=== PATIENT | male | born 1985 | race Hispanic/Latino ===

== ENCOUNTER 2018-11-27 08:56 | Inpatient (IN) | payer SELFPAY ==
[2018-11-27] MEDS ORDERED: NACL 0.9% 500 ML 500 ML IV ONE (09:02)
[2018-11-27] MEDS ORDERED: TYLENOL PO STA (09:02)
[2018-11-27 09:26] LABS: Basophils % (Auto) 0.7 % (0.0-1.8); Eosinophils % (Auto) 0.1 % (0.0-4.3); Hematocrit 44.3 % (35.5-45.6); Hemoglobin 15.4 gm/dl (11.8-15.2); Lymphocytes % (Auto) 17.2 % (13.4-35.0); Mean Corpuscular HGB Conc 35 % (32-34); Mean Corpuscular Volume 89 fl (84-94); Monocytes # (Auto) 0.6 K/mm3 (0.0-0.8); Monocytes % (Auto) 9.9 % (0.0-7.3); Platelet Count 142 K/mm3 (140-440); Red Blood Count 4.95 M/mm3 (3.65-5.03); Red Cell Distribution Width 13.6 % (13.2-15.2)
[2018-11-27] MEDS ORDERED: NACL 0.9% 1000 ML 1,000 ML IV ONE ×3 (09:27→13:47)
[2018-11-27] MEDS ORDERED: LEVAQUIN 750MG/150ML 750 MG/150 ML BAG IV ONE (09:28)
--- NOTE | 2018-11-27 09:33 | Emergency Department Report ---
ED General Adult HPI - General Chief complaint: Chest Pain Stated complaint: CHEST PAIN Time Seen by Provider: 11/27/18 09:17 Source: patient Mode of arrival: Ambulatory Limitations: No Limitations - History of Present Illness Initial comments: 33-year-old male with cough fever chills nausea and some chest discomfort. Chest discomfort is largely related to cough. However there is some pain on inspiration. Patient states that he had a "walking pneumonia in the past". He takes no chronic medication. He's had no pneumonia vaccines. -: Gradual, days(s) Location: chest Radiation: non-radiation Quality: other (some tightness) Consistency: intermittent (mostly with cough) Improves with: none Worsens with: none Associated Symptoms: denies other symptoms Treatments Prior to Arrival: none - Related Data Previous Rx's Medication Instructions Recorded Last Taken Type HYDROcodone/APAP 5-325 [[place] 1 each PO Q6HR PRN #18 tablet 06/10/18 Unknown Rx 5/325] Allergies Allergy/AdvReac Type Severity Reaction Status Date / Time No Known Allergies Allergy Verified 06/10/18 11:16 ED Review of Systems ROS: Stated complaint: CHEST PAIN Other details as noted in HPI Constitutional: chills, fever Eyes: denies: eye pain, eye discharge, vision change ENT: denies: ear pain, throat pain Respiratory: cough, shortness of breath. denies: wheezing Cardiovascular: chest pain. denies: palpitations Endocrine: no symptoms reported Gastrointestinal: denies: abdominal pain, nausea, diarrhea Genitourinary: denies: urgency, dysuria Musculoskeletal: other (denies leg pain or swelling). denies: back pain, joint swelling, arthralgia Skin: denies: rash, lesions Neurological: denies: headache, weakness, paresthesias Psychiatric: denies: anxiety, depression Hematological/Lymphatic: denies: easy bleeding, easy bruising ED Past Medical Hx - Past Medical History Additional medical history: "Walking pneumonia" - Surgical History Past Surgical History?: No - Social History Smoking Status: Current Every Day Smoker Substance Use Type: Alcohol - Medications Home Medications: Home Medications Medication Instructions Recorded Confirmed Last Taken Type HYDROcodone/APAP 5-325 [[place] 1 each PO Q6HR PRN #18 tablet 06/10/18 Unknown Rx 5/325] ED Physical Exam - General Limitations: No Limitations General appearance: alert, in no apparent distress - Head Head exam: Present: atraumatic, normocephalic - Eye Eye exam: Present: normal appearance. Absent: scleral icterus - ENT ENT exam: Present: mucous membranes dry (a bit) - Neck Neck exam: Present: normal inspection. Absent: tenderness, meningismus - Respiratory Respiratory exam: Present: normal lung sounds bilaterally. Absent: respiratory distress - Cardiovascular Cardiovascular Exam: Present: normal rhythm, tachycardia. Absent: systolic murmur, diastolic murmur, rubs, gallop - GI/Abdominal GI/Abdominal exam: Present: soft, normal bowel sounds. Absent: distended, tenderness, guarding, rebound, rigid - Rectal Rectal exam: Present: deferred - Extremities Exam Extremities exam: Present: normal inspection, full ROM, normal capillary refill. Absent: tenderness, pedal edema, joint swelling, calf tenderness - Back Exam Back exam: Present: normal inspection - Neurological Exam Neurological exam: Present: alert, oriented X3, CN II-XII intact. Absent: motor sensory deficit - Psychiatric Psychiatric exam: Present: normal affect, normal mood - Skin Skin exam: Present: warm, dry, intact, normal color. Absent: rash ED Course Vital Signs 11/27/18 11/27/18 11/27/18 09:00 09:48 10:00 Temperature 102.8 F H Pulse Rate 141 H 118 H 122 H Respiratory 20 24 18 Rate Blood Pressure 117/76 116/76 O2 Sat by Pulse 100 96 95 Oximetry 11/27/18 11/27/18 11/27/18 10:16 10:30 10:46 Temperature Pulse Rate 123 H 114 H 115 H Respiratory 18 28 H 20 Rate Blood Pressure 116/76 110/69 116/76 O2 Sat by Pulse 94 94 94 Oximetry 11/27/18 11/27/18 11/27/18 11:00 11:24 11:30 Temperature Pulse Rate 117 H 119 H 115 H Respiratory 18 31 H 24 Rate Blood Pressure 115/79 O2 Sat by Pulse 95 94 96 Oximetry 11/27/18 11/27/18 11/27/18 11:46 12:00 12:08 Temperature 99.7 F H Pulse Rate 106 H 99 H Respiratory 19 15 Rate Blood Pressure O2 Sat by Pulse 95 96 Oximetry 11/27/18 11/27/18 11/27/18 12:16 12:30 12:46 Temperature Pulse Rate 102 H 111 H 107 H Respiratory 18 15 21 Rate Blood Pressure O2 Sat by Pulse 95 95 96 Oximetry 11/27/18 11/27/18 11/27/18 13:00 13:16 13:30 Temperature Pulse Rate 102 H 95 H Respiratory 23 16 Rate Blood Pressure 123/78 123/78 O2 Sat by Pulse 95 94 97 Oximetry 11/27/18 11/27/18 11/27/18 13:46 14:00 14:16 Temperature Pulse Rate 88 Respiratory 18 Rate Blood Pressure 123/78 123/78 123/78 O2 Sat by Pulse 95 97 97 Oximetry 11/27/18 11/27/18 11/27/18 14:30 14:46 15:00 Temperature Pulse Rate 95 H 92 H 113 H Respiratory 14 17 15 Rate Blood Pressure 123/78 98/68 98/68 O2 Sat by Pulse 94 93 90 Oximetry 11/27/18 11/27/18 11/27/18 15:16 15:30 15:46 Temperature Pulse Rate 88 90 106 H Respiratory 14 18 26 H Rate Blood Pressure 123/91 123/91 123/91 O2 Sat by Pulse 96 95 96 Oximetry - Reevaluation(s) Reevaluation #1: Patient's workup has been relatively benign except for a low sodium. He was certainly volume depleted. He had a persistent resting tachycardia but now his heart rate is in the 90s. However, I had him stand up and is heart rate is 120 standing. I asked the patient and recommended admission for further care fluids and observation. He does have a SIRS syndrome. I think it's probably viral. I explained him the benefit of admission. He is mentally competent and declines. I ordered another fluid of IV fluid. CT of his chest showed no abnormality. 11/27/18 14:26 Reevaluation #2: Patient with persistent resting tachycardia. Rises to the 120s when standing. The patient will be admitted for SIRS and respiratory infection. Discussed with Dr. Fragoso. 11/27/18 15:53 ED Medical Decision Making - Lab Data Result diagrams: 11/27/18 09:15 11/27/18 09:15 Laboratory Results - last 24 hr 11/27/18 11/27/18 09:15 09:15 WBC 5.9 RBC 4.95 Hgb 15.4 H Hct 44.3 MCV 89 MCH 31 MCHC 35 H RDW 13.6 Plt Count 142 Lymph % (Auto) 17.2 [place] % (Auto) 9.9 H Eos % (Auto) 0.1 Baso % (Auto) 0.7 Lymph # 1.0 L [place] # 0.6 Eos # 0.0 Baso # 0.0 Seg Neutrophils % 72.1 H Seg Neutrophils # 4.3 VBG pH 7.413 - EKG Data -: EKG Interpreted by Me EKG shows normal: sinus rhythm, axis, intervals, QRS complexes, ST-T waves Rate: tachycardia - EKG Data Interpretation: no acute changes - Radiology Data Radiology results: report reviewed interpreted by me: Chest x-ray no acute process There is no aortic dissection seen. There are no abnormal pulmonary arterial filling defects seen to indicate acute pulmonary emboli. There is no abnormal mediastinal or hilar mass seen. There is no pleural effusion seen. The lungs are clear. There is no pneumothorax seen. Critical care attestation.: If time is entered above; I have spent that time in minutes in the direct care of this critically ill patient, excluding procedure time. ED Disposition Clinical Impression: SIRS (systemic inflammatory response syndrome), Respiratory infection Disposition: DC-09 OP ADMIT IP TO THIS HOSP Is pt being admited?: Yes Does the pt Need Aspirin: Yes Condition: Stable Referrals: PRIMARY CARE, [Primary Care Provider] - 3-5 Days Time of Disposition: 15:54
[2018-11-27 09:59] LABS: INR 1.07 (0.87-1.13)
--- NOTE | 2018-11-27 10:35 | XRay Report ---
PROCEDURE: XR CHEST 1V AP TECHNIQUE: Chest radiograph single view. HISTORY: possible Sepsis COMPARISONS: None . FINDINGS: Heart: Normal. Mediastinum/Vessels: Normal. Lungs/Pleural space: Normal. Bony thorax: No acute osseous abnormality. Life support devices: None. IMPRESSION: No acute cardiopulmonary abnormality. This document is electronically signed by Kassandra Wynn MD., Nov 27 2018 10:33:42 AM ET
[2018-11-27 10:45] LABS: Alanine Aminotransferase 24 units/L (7-56); Albumin 4.1 g/dL (3.9-5); BUN/Creatinine Ratio 7; Blood Urea Nitrogen 8 mg/dL (9-20); Calcium 8.4 mg/dL (8.4-10.2); Hemolysis Index 4
[2018-11-27 11:07] LABS: Bilirubin,Urine NEG (Negative); Blood,Urine SM (Negative); Color,Urine Amber (Yellow); Mucus,Urine 2+ /HPF
--- NOTE | 2018-11-27 12:16 | Cat Scan Report ---
PROCEDURE: CT ANGIO CHEST TECHNIQUE: CT angiography of the chest was performed. IV contrast was administered. Axial images and coronal and sagittal reformatted images were obtained. Fan MIP reformatted images were also obtained. HISTORY: cough, tachycardia, fever, chest pain COMPARISON: None FINDINGS: There is no aortic dissection seen. There are no abnormal pulmonary arterial filling defects seen to indicate acute pulmonary emboli. There is no abnormal mediastinal or hilar mass seen. There is no pleural effusion seen. The lungs are clear. There is no pneumothorax seen. IMPRESSION: There is no aortic dissection or pulmonary embolism seen. This document is electronically signed by Radha Cabezas MD., Nov 27 2018 12:14:24 PM ET
[2018-11-27 16:44] LABS: Free T4 (Free Thyroxine) 0.92 ng/dL (0.76-1.46)
[2018-11-27] MEDS ORDERED: PERCOCET 5/325 PO PRN (21:29)
[2018-11-27] MEDS ORDERED: DILAUDID IV PRN (21:29)
[2018-11-27] MEDS ORDERED: SODIUM CHLORIDE FLUSH SYRINGE 10 ML IV PRN (21:29)
--- NOTE | 2018-11-27 21:32 | History and Physical Report ---
History of Present Illness Date of examination: 11/27/18 Date of admission: 11/27/18 15:54 Chief complaint: Chest pain 1 day Cough 4 days History of present illness: 33-year-old male with cough fever chills nausea and some chest discomfort. Chest discomfort is largely related to cough. However there is some pain on inspiration. Patient states that he had a "walking pneumonia in the past". He takes no chronic medication. He's had no pneumonia vaccines. Past Medical History Additional medical history: "Walking pneumonia" Surgical History Past Surgical History?: No Social History Smoking Status: Current Every Day Smoker Substance Use Type: Alcohol Family history Non contributory Medications Home Medications: Home Medications Medication Instructions Recorded Confirmed Last Taken Type HYDROcodone/APAP 5-325 [[place] 1 each PO Q6HR PRN #18 tablet 06/10/18 Unknown Rx 5/325] Review of Systems ROS: Stated complaint: CHEST PAIN Other details as noted in HPI Constitutional: chills, fever Eyes: denies: eye pain, eye discharge, vision change ENT: denies: ear pain, throat pain Respiratory: cough, shortness of breath. denies: wheezing Cardiovascular: chest pain. denies: palpitations Endocrine: no symptoms reported Gastrointestinal: denies: abdominal pain, nausea, diarrhea Genitourinary: denies: urgency, dysuria Musculoskeletal: other (denies leg pain or swelling). denies: back pain, joint swelling, arthralgia Skin: denies: rash, lesions Neurological: denies: headache, weakness, paresthesias Psychiatric: denies: anxiety, depression Hematological/Lymphatic: denies: easy bleeding, easy bruising Medications and Allergies Allergies Allergy/AdvReac Type Severity Reaction Status Date / Time No Known Allergies Allergy Verified 06/10/18 11:16 Home Medications Medication Instructions Recorded Confirmed Last Taken Type HYDROcodone/APAP 5-325 [[place] 1 each PO Q6HR PRN #18 tablet 06/10/18 Unknown Rx 5/325] Exam - Constitutional Vitals: Temp Pulse Resp BP Pulse Ox 98.0 F 99 H 16 112/71 96 11/27/18 17:16 11/27/18 17:16 11/27/18 17:16 11/27/18 17:16 11/27/18 17:16 General appearance: Present: no acute distress, well-nourished - EENT Eyes: Present: PERRL ENT: hearing intact, clear oral mucosa - Neck Neck: Present: supple, normal ROM - Respiratory Respiratory effort: normal Respiratory: bilateral: CTA - Cardiovascular Heart rate: 78 Rhythm: regular Heart Sounds: Present: S1 & S2. Absent: rub, click - Extremities Extremities: no ischemia, pulses intact, pulses symmetrical, No edema Peripheral Pulses: within normal limits - Abdominal General gastrointestinal: Present: soft, non-tender, non-distended, normal bowel sounds Male genitourinary: Present: normal - Rectal Rectal Exam: deferred - Integumentary Integumentary: Present: clear, warm, dry - Musculoskeletal Musculoskeletal: gait normal, strength equal bilaterally - Psychiatric Psychiatric: appropriate mood/affect, intact judgment & insight - Neurologic Neurologic: CNII-XII intact, moves all extremities - Allied Health Allied health notes reviewed: nursing, case management Results - Labs CBC & Chem 7: 11/27/18 09:15 11/27/18 09:15 Labs: Laboratory Last Values WBC 5.9 K/mm3 (4.5-11.0) 11/27/18 09:15 RBC 4.95 M/mm3 (3.65-5.03) 11/27/18 09:15 Hgb 15.4 gm/dl (11.8-15.2) H 11/27/18 09:15 Hct 44.3 % (35.5-45.6) 11/27/18 09:15 MCV 89 fl (84-94) 11/27/18 09:15 MCH 31 pg (28-32) 11/27/18 09:15 MCHC 35 % (32-34) H 11/27/18 09:15 RDW 13.6 % (13.2-15.2) 11/27/18 09:15 Plt Count 142 K/mm3 (140-440) 11/27/18 09:15 Lymph % (Auto) 17.2 % (13.4-35.0) 11/27/18 09:15 [place] % (Auto) 9.9 % (0.0-7.3) H 11/27/18 09:15 Eos % (Auto) 0.1 % (0.0-4.3) 11/27/18 09:15 Baso % (Auto) 0.7 % (0.0-1.8) 11/27/18 09:15 Lymph # 1.0 K/mm3 (1.2-5.4) L 11/27/18 09:15 [place] # 0.6 K/mm3 (0.0-0.8) 11/27/18 09:15 Eos # 0.0 K/mm3 (0.0-0.4) 11/27/18 09:15 Baso # 0.0 K/mm3 (0.0-0.1) 11/27/18 09:15 Seg Neutrophils % 72.1 % (40.0-70.0) H 11/27/18 09:15 Seg Neutrophils # 4.3 K/mm3 (1.8-7.7) 11/27/18 09:15 PT 14.6 Sec. (12.2-14.9) 11/27/18 09:15 INR 1.07 (0.87-1.13) 11/27/18 09:15 VBG pH 7.413 (7.320-7.420) 11/27/18 09:15 Sodium 130 mmol/L (137-145) L 11/27/18 09:15 Potassium 3.5 mmol/L (3.6-5.0) L 11/27/18 09:15 Chloride 93.3 mmol/L (98-107) L 11/27/18 09:15 Carbon Dioxide 22 mmol/L (22-30) 11/27/18 09:15 18 mmol/L 11/27/18 09:15 BUN 8 mg/dL (9-20) L 11/27/18 09:15 1.1 mg/dL (0.8-1.5) 11/27/18 09:15 Estimated GFR > 60 ml/min 11/27/18 09:15 7 % 11/27/18 09:15 Glucose 142 mg/dL (75-100) H 11/27/18 09:15 Lactic Acid 0.40 mmol/L (0.7-2.0) L 11/27/18 12:09 Calcium 8.4 mg/dL (8.4-10.2) 11/27/18 09:15 0.50 mg/dL (0.1-1.2) 11/27/18 09:15 AST 20 units/L (5-40) 11/27/18 09:15 ALT 24 units/L (7-56) 11/27/18 09:15 46 units/L (35-129) 11/27/18 09:15 7.3 g/dL (6.3-8.2) 11/27/18 09:15 4.1 g/dL (3.9-5) 11/27/18 09:15 1.3 % 11/27/18 09:15 TSH 0.510 mlU/mL (0.270-4.200) 11/27/18 16:00 Free T4 0.92 ng/dL (0.76-1.46) 11/27/18 16:00 [place] (Yellow) 11/27/18 10:40 Slightly-cloudy (Clear) 11/27/18 10:40 5.0 (5.0-7.0) 11/27/18 10:40 Ur Specific [place] 1.029 (1.003-1.030) 11/27/18 10:40 30 mg/dl mg/dL (Negative) 11/27/18 10:40 Neg mg/dL (Negative) 11/27/18 10:40 Tr mg/dL (Negative) 11/27/18 10:40 Sm (Negative) 11/27/18 10:40 Neg (Negative) 11/27/18 10:40 Neg (Negative) 11/27/18 10:40 4.0 mg/dL (<2.0) 11/27/18 10:40 Ur Leukocyte Esterase Neg (Negative) 11/27/18 10:40 4.0 /HPF (0.0-6.0) 11/27/18 10:40 6.0 /HPF (0.0-6.0) 11/27/18 10:40 2+ /HPF 11/27/18 10:40 - Imaging and Cardiology EKG: report reviewed (Sinus tachycardia 118 /min) Chest x-ray: report reviewed (NAF) CT scan - chest: report reviewed (NAF ) Assessment and Plan Advance Directives: Yes (Full code) VTE prophylaxis?: Chemical Plan of care discussed with patient/family: Yes - Patient Problems (1) SIRS (systemic inflammatory response syndrome) Current Visit: Yes Status: Acute Plan to address problem: Temp of 102.8 and Tachycardia in favor of SIRS (2) Acute bronchitis Current Visit: Yes Status: Acute Qualifiers: Bronchitis organism: unspecified organism Qualified Code(s): J20.9 - Acute bronchitis, unspecified Plan to address problem: IV abx and Duonebs (3) Chest pain Current Visit: Yes Status: Acute Qualifiers: Chest pain type: unspecified Qualified Code(s): R07.9 - Chest pain, unspecified Plan to address problem: Chest pain r/o mi protocol Exercise stress test in am Serial troponins Possible CP sec to coughing---musculoskeliltal (4) Hyponatremia Current Visit: Yes Status: Acute Plan to address problem: V Fluids for now (5) Hypokalemia Current Visit: Yes Status: Acute Plan to address problem: supplemented (6) DVT prophylaxis Current Visit: Yes Status: Acute Plan to address problem: On Lovenox and GI propylaxis
[2018-11-27] MEDS: D5NS 1,000 ML IV SCH (22:28)
[2018-11-27] MEDS: TYLENOL PO PRN (22:34)
[2018-11-27] MEDS: PEPCID PO SCH (22:35)
[2018-11-27] MEDS: SODIUM CHLORIDE FLUSH SYRINGE 10 ML IV SCH (22:35)
[2018-11-28] MEDS: TYLENOL PO PRN ×2 (04:43→15:46)
[2018-11-28] MEDS ORDERED: LEXISCAN IV ONE (08:04)
[2018-11-28] MEDS: LEVAQUIN 750MG/150ML 750 MG/150 ML BAG IV SCH (09:27)
[2018-11-28] MEDS: PEPCID PO SCH ×2 (09:27→22:49)
[2018-11-28] MEDS: SODIUM CHLORIDE FLUSH SYRINGE 10 ML IV SCH ×2 (09:32→22:47)
[2018-11-28 10:04] LABS: Basophils % (Auto) 1.3 % (0.0-1.8); Lymphocytes # (Auto) 1.1 K/mm3 (1.2-5.4); Mean Corpuscular HGB Conc 35 % (32-34); Mean Corpuscular Volume 88 fl (84-94); Monocytes # (Auto) 0.3 K/mm3 (0.0-0.8); Monocytes % (Auto) 8.6 % (0.0-7.3); Red Blood Count 4.87 M/mm3 (3.65-5.03); Red Cell Distribution Width 13.5 % (13.2-15.2)
[2018-11-28 10:16] LABS: Platelet Count 99 K/mm3 (140-440)
[2018-11-28 10:24] LABS: Alanine Aminotransferase 24 units/L (7-56); Albumin 3.8 g/dL (3.9-5); BUN/Creatinine Ratio 7; Blood Urea Nitrogen 6 mg/dL (9-20); Calcium 8.1 mg/dL (8.4-10.2); Hemolysis Index 13
[2018-11-28] MEDS: ZOFRAN IV PRN (12:33)
--- NOTE | 2018-11-28 14:05 | Progress Note ---
Assessment and Plan Assessment and plan: hest pain 1 day Cough 4 days History of present illness: 33-year-old male with cough fever chills nausea and some chest discomfort. Chest discomfort is largely related to cough. However there is some pain on inspiration. Patient states that he had a "walking pneumonia in the past". He takes no chronic medication. He's had no pneumonia vaccines. Past Medical History Additional medical history: "Walking pneumonia" Diagnosis High fevers SIRS Cough and pleuritic chest pain hyponatremia hypokalemia CTA chest negative plan fup Blood cx, flu swab, ct abdomen and pelvis -ID consulted dvt ppx- early ambulation History Interval history: Review of systems Constitutional: Continues to have fevers, no malaise, no joint pains CVS: No chest pain, no orthopnea, no pedal edema GI: No abdominal pain, no diarrhea, no vomiting, no constipation Respiratory: No shortness of breath, no wheezing, no coughing Hospitalist Physical - Physical exam Narrative exam: General.: Appears well, no distress, nontoxic HEENT: Moist mucous membranes, extraocular muscles intact, no lymphadenopathy Neck: supple Cardiac: S1-S2 heard Lungs: clear to auscultation bilaterally Abdomen: soft , nontender, nondistended, bowel sounds positive Extremities: no edema clubbing or cyanosis Skin: no rash or lesions Neurologic: no gross focal deficits Psych: calm, and cooperative - Constitutional Vitals: Temp Pulse Resp BP Pulse Ox 102.6 F H 126 H 20 121/86 95 11/28/18 11:50 11/28/18 11:49 11/28/18 11:50 11/28/18 11:50 11/28/18 11:49 General appearance: Present: no acute distress, well-nourished Results - Labs CBC & Chem 7: 11/28/18 09:37 11/28/18 09:37 Labs: Laboratory Last Values WBC 3.0 K/mm3 (4.5-11.0) L 11/28/18 09:37 RBC 4.87 M/mm3 (3.65-5.03) 11/28/18 09:37 Hgb 15.0 gm/dl (11.8-15.2) 11/28/18 09:37 Hct 43.0 % (35.5-45.6) 11/28/18 09:37 MCV 88 fl (84-94) 11/28/18 09:37 MCH 31 pg (28-32) 11/28/18 09:37 MCHC 35 % (32-34) H 11/28/18 09:37 RDW 13.5 % (13.2-15.2) 11/28/18 09:37 Plt Count 99 K/mm3 (140-440) L 11/28/18 09:37 Lymph % (Auto) 35.0 % (13.4-35.0) 11/28/18 09:37 [place] % (Auto) 8.6 % (0.0-7.3) H 11/28/18 09:37 Eos % (Auto) 0.0 % (0.0-4.3) 11/28/18 09:37 Baso % (Auto) 1.3 % (0.0-1.8) 11/28/18 09:37 Lymph # 1.1 K/mm3 (1.2-5.4) L 11/28/18 09:37 [place] # 0.3 K/mm3 (0.0-0.8) 11/28/18 09:37 Eos # 0.0 K/mm3 (0.0-0.4) 11/28/18 09:37 Baso # 0.0 K/mm3 (0.0-0.1) 11/28/18 09:37 Seg Neutrophils % 55.1 % (40.0-70.0) 11/28/18 09:37 Seg Neutrophils # 1.7 K/mm3 (1.8-7.7) L 11/28/18 09:37 PT 14.6 Sec. (12.2-14.9) 11/27/18 09:15 INR 1.07 (0.87-1.13) 11/27/18 09:15 VBG pH 7.413 (7.320-7.420) 11/27/18 09:15 Sodium 131 mmol/L (137-145) L 11/28/18 09:37 Potassium 3.4 mmol/L (3.6-5.0) L 11/28/18 09:37 Chloride 96.3 mmol/L (98-107) L 11/28/18 09:37 Carbon Dioxide 22 mmol/L (22-30) 11/28/18 09:37 16 mmol/L 05/27/19 09:37 BUN 6 mg/dL (9-20) L 11/28/18 09:37 0.9 mg/dL (0.8-1.5) 11/28/18 09:37 Estimated GFR > 60 ml/min 11/28/18 09:37 7 % 11/28/18 09:37 Glucose 141 mg/dL (75-100) H 11/28/18 09:37 5.0 % (4-6) 11/27/18 09:15 Lactic Acid 0.40 mmol/L (0.7-2.0) L 11/27/18 12:09 Calcium 8.1 mg/dL (8.4-10.2) L 11/28/18 09:37 0.40 mg/dL (0.1-1.2) 11/28/18 09:37 AST 24 units/L (5-40) 11/28/18 09:37 ALT 24 units/L (7-56) 11/28/18 09:37 40 units/L (35-129) 11/28/18 09:37 < 0.010 ng/mL (0.00-0.029) 11/28/18 09:37 6.7 g/dL (6.3-8.2) 11/28/18 09:37 3.8 g/dL (3.9-5) L 11/28/18 09:37 1.3 % 11/28/18 09:37 TSH 0.510 mlU/mL (0.270-4.200) 11/27/18 16:00 Free T4 0.92 ng/dL (0.76-1.46) 11/27/18 16:00 [place] (Yellow) 11/27/18 10:40 Slightly-cloudy (Clear) 11/27/18 10:40 5.0 (5.0-7.0) 11/27/18 10:40 Ur Specific [place] 1.029 (1.003-1.030) 11/27/18 10:40 30 mg/dl mg/dL (Negative) 11/27/18 10:40 Neg mg/dL (Negative) 11/27/18 10:40 Tr mg/dL (Negative) 11/27/18 10:40 Sm (Negative) 11/27/18 10:40 Neg (Negative) 11/27/18 10:40 Neg (Negative) 11/27/18 10:40 4.0 mg/dL (<2.0) 11/27/18 10:40 Ur Leukocyte Esterase Neg (Negative) 11/27/18 10:40 4.0 /HPF (0.0-6.0) 11/27/18 10:40 6.0 /HPF (0.0-6.0) 11/27/18 10:40 2+ /HPF 11/27/18 10:40 Active Medications - Current Medications Current Medications: Generic Name Dose Route Start Last Admin Trade Name Freq PRN Reason Stop Dose Admin Acetaminophen 650 mg 11/27/18 21:29 11/28/18 04:43 Tylenol PO 650 mg Q4H PRN Administration Pain MILD(1-3)/Fever >100.5/RAMIREZ Enoxaparin Sodium 40 mg 11/28/18 22:00 Lovenox SUB-Q QDAY@2200 SERGEY Famotidine 20 mg 11/27/18 22:00 11/28/18 09:27 Pepcid PO 20 mg BID SERGEY Administration Hydromorphone HCl 0.5 mg 11/27/18 21:29 Dilaudid IV Q3H PRN Pain , Severe (7-10) Dextrose/Sodium Chloride 1,000 mls @ 75 mls/hr 11/27/18 22:00 11/27/18 22:28 D5ns IV 75 mls/hr DIRECT SERGEY Administration Levofloxacin/Dextrose 750 mg in 150 mls @ 100 mls/hr 11/28/18 10:00 11/28/18 09:27 Levaquin 750mg/150ml IV 100 mls/hr Q24HR SERGEY Administration Protocol Ondansetron HCl 4 mg 11/27/18 21:29 11/28/18 12:33 Zofran IV 4 mg Q8H PRN Administration Nausea And Vomiting Oxycodone/Acetaminophen 1 tab 11/27/18 21:29 Percocet 5/325 PO Q6H PRN Pain, Moderate (4-6) Sodium Chloride 10 ml 11/27/18 22:00 11/28/18 09:32 Sodium Chloride Flush Syringe 10 Ml IV 10 ml BID SERGEY Administration Sodium Chloride 10 ml 11/27/18 21:29 Sodium Chloride Flush Syringe 10 Ml IV PRN PRN LINE FLUSH
[2018-11-28] MEDS: D5NS 1,000 ML IV SCH (15:36)
--- NOTE | 2018-11-28 18:24 | Cat Scan Report ---
PROCEDURE: CT ABDOMEN PELVIS W CON TECHNIQUE: Computerized axial tomography of the abdomen and pelvis was performed after the IV inject ion of iodinated nonionic contrast. CT DOSE LENGTH PRODUCT: 3226.4 mGycm HISTORY: fever COMPARISONS: None . FINDINGS: Contrast-enhanced CT of the abdomen and pelvis was performed following the intravenous admi nistration of iodinated contrast. Data was reformatted in the sagittal and coronal planes. Comparison is made to the unenhanced examination of June 10, 2018. The heart is normal in size. The lung bases appear clear. ABDOMEN: There is mild fatty infiltration of the liver without suspect focal hepatic lesion. The spleen is mildly large at 14.5 x 4.1 cm, previously 13.3 x 4.0 cm. There is a splenule. There is a low-density right adrenal nodule consistent with adenoma 1.8 x 1.7 cm, previously 1.7 x 1. 5 cm. There is a small bilateral renal cysts. There is a 0.4 cm left renal calculus. No ureteral calculus o r hydronephrosis is seen. There is no small or large bowel obstruction. Pelvis: There is a normal appendix. There is no evidence of diverticulitis. The prostate is normal in size. The urinary bladder is within normal limits. There is some wall thickening of the rectum with perirectal stranding, consistent with proctitis. The re are small perirectal lymph nodes, axial image 180, 0.9 cm and axial image 181, 0.8 cm. There is a node medial to the posterior branch of the left internal iliac artery, axial image 166, 1.3 x 1.1 cm. There is a left pelvic sidewall node, image 165, 1.1 x 0.9 cm. These nodes all appear new in compari son to the prior exam. no definite rectal mass is seen and this is thought likely to be inflammatory, but correlation with digital exam is advised. There is no perirectal abscess. IMPRESSION: ABDOMEN: The spleen is mildly large Right adrenal adenoma, minimally larger than on prior exam Pelvis: Rectal wall thickening with left perirectal and left pelvic lymph nodes. This is thought like ly to represent proctitis, but correlation with digital exam is advised to exclude rectal neoplasm This document is electronically signed by Tyler Ornelas MD., Nov 28 2018 06:22:32 PM ET
[2018-11-28] MEDS: LOVENOX SUB-Q SCH (22:47)
--- NOTE | 2018-11-28 23:16 | Treadmill Report ---
TREADMILL STRESS TEST REASON FOR TEST: Chest pain and shortness of breath. IMAGING: The patient exercised on Jace protocol for 9 minutes. Resting heart rate was 119. Resting blood pressure 113/79. Peak heart rate is 160, which is 85% of maximum heart rate. Peak blood pressure is 156/82. There were no EKG changes or arrhythmia suggestive of ischemia, stopped secondary to shortness of breath. SUMMARY: Negative treadmill EKG, mildly resting tachycardia, but no exaggerated heart rate with exercise or arrhythmias noted or EKG changes with no exaggerated BP response to exercise. Negative treadmill stress EKG. JOB# [id number] VRM/NTS
[2018-11-29] MEDS: TYLENOL PO PRN ×4 (01:46→21:55)
[2018-11-29] MEDS: D5NS 1,000 ML IV SCH (07:13)
--- NOTE | 2018-11-29 08:17 | Progress Note ---
Assessment and Plan Assessment and plan: hest pain 1 day Cough 4 days History of present illness: 33-year-old male with cough fever chills nausea and some chest discomfort. Chest discomfort is largely related to cough. However there is some pain on inspiration. Patient states that he had a "walking pneumonia in the past". He takes no chronic medication. He's had no pneumonia vaccines. Past Medical History Additional medical history: "Walking pneumonia" CT A/P; proctitis with daisy-rectal LAD Diagnosis Acute infectious Proctitis Sepsis viral syndrome? Cough and pleuritic chest pain hyponatremia hypokalemia CTA chest negative plan cont levaquin, add flagyl obtain rapid HIV, RNA PCR and cd 4 count fup Blood cx, -ID consult appreciated dvt ppx- early ambulation History Interval history: Review of systems Constitutional: Continues to have fevers, no malaise, no joint pains CVS: No chest pain, no orthopnea, no pedal edema GI: No abdominal pain, no diarrhea, no vomiting, no constipation Respiratory: No shortness of breath, no wheezing, no coughing Hospitalist Physical - Physical exam Narrative exam: General.: Appears well, no distress, nontoxic HEENT: Moist mucous membranes, extraocular muscles intact, no lymphadenopathy Neck: supple Cardiac: S1-S2 heard Lungs: clear to auscultation bilaterally Abdomen: soft , nontender, nondistended, bowel sounds positive Extremities: no edema clubbing or cyanosis Skin: no rash or lesions Neurologic: no gross focal deficits Psych: calm, and cooperative - Constitutional Vitals: Temp Pulse Resp BP Pulse Ox 100.4 F H 100 H 20 104/64 96 11/29/18 07:50 11/28/18 23:25 11/28/18 23:25 11/28/18 23:25 11/28/18 23:25 General appearance: Present: no acute distress, well-nourished Results - Labs CBC & Chem 7: 11/28/18 09:37 11/28/18 09:37 Labs: Laboratory Last Values WBC 3.0 K/mm3 (4.5-11.0) L 11/28/18 09:37 RBC 4.87 M/mm3 (3.65-5.03) 11/28/18 09:37 Hgb 15.0 gm/dl (11.8-15.2) 11/28/18 09:37 Hct 43.0 % (35.5-45.6) 11/28/18 09:37 MCV 88 fl (84-94) 11/28/18 09:37 MCH 31 pg (28-32) 11/28/18 09:37 MCHC 35 % (32-34) H 11/28/18 09:37 RDW 13.5 % (13.2-15.2) 11/28/18 09:37 Plt Count 99 K/mm3 (140-440) L 11/28/18 09:37 Lymph % (Auto) 35.0 % (13.4-35.0) 11/28/18 09:37 [place] % (Auto) 8.6 % (0.0-7.3) H 11/28/18 09:37 Eos % (Auto) 0.0 % (0.0-4.3) 11/28/18 09:37 Baso % (Auto) 1.3 % (0.0-1.8) 11/28/18 09:37 Lymph # 1.1 K/mm3 (1.2-5.4) L 11/28/18 09:37 [place] # 0.3 K/mm3 (0.0-0.8) 11/28/18 09:37 Eos # 0.0 K/mm3 (0.0-0.4) 11/28/18 09:37 Baso # 0.0 K/mm3 (0.0-0.1) 11/28/18 09:37 Seg Neutrophils % 55.1 % (40.0-70.0) 11/28/18 09:37 Seg Neutrophils # 1.7 K/mm3 (1.8-7.7) L 11/28/18 09:37 PT 14.6 Sec. (12.2-14.9) 11/27/18 09:15 INR 1.07 (0.87-1.13) 11/27/18 09:15 VBG pH 7.413 (7.320-7.420) 11/27/18 09:15 Sodium 131 mmol/L (137-145) L 11/28/18 09:37 Potassium 3.4 mmol/L (3.6-5.0) L 11/28/18 09:37 Chloride 96.3 mmol/L (98-107) L 11/28/18 09:37 Carbon Dioxide 22 mmol/L (22-30) 11/28/18 09:37 16 mmol/L 11/28/18 09:37 BUN 6 mg/dL (9-20) L 11/28/18 09:37 0.9 mg/dL (0.8-1.5) 11/28/18 09:37 Estimated GFR > 60 ml/min 11/28/18 09:37 7 % 11/28/18 09:37 Glucose 141 mg/dL (75-100) H 11/28/18 09:37 5.0 % (4-6) 11/27/18 09:15 Lactic Acid 0.40 mmol/L (0.7-2.0) L 11/27/18 12:09 Calcium 8.1 mg/dL (8.4-10.2) L 11/28/18 09:37 0.40 mg/dL (0.1-1.2) 11/28/18 09:37 AST 24 units/L (5-40) 11/28/18 09:37 ALT 24 units/L (7-56) 11/28/18 09:37 40 units/L (35-129) 11/28/18 09:37 < 0.010 ng/mL (0.00-0.029) 11/28/18 14:50 6.7 g/dL (6.3-8.2) 11/28/18 09:37 3.8 g/dL (3.9-5) L 11/28/18 09:37 1.3 % 11/28/18 09:37 TSH 0.510 mlU/mL (0.270-4.200) 11/27/18 16:00 Free T4 0.92 ng/dL (0.76-1.46) 11/27/18 16:00 [place] (Yellow) 11/27/18 10:40 Slightly-cloudy (Clear) 11/27/18 10:40 5.0 (5.0-7.0) 11/27/18 10:40 Ur Specific [place] 1.029 (1.003-1.030) 11/27/18 10:40 30 mg/dl mg/dL (Negative) 11/27/18 10:40 Neg mg/dL (Negative) 11/27/18 10:40 Tr mg/dL (Negative) 11/27/18 10:40 Sm (Negative) 11/27/18 10:40 Neg (Negative) 11/27/18 10:40 Neg (Negative) 11/27/18 10:40 4.0 mg/dL (<2.0) 11/27/18 10:40 Ur Leukocyte Esterase Neg (Negative) 11/27/18 10:40 4.0 /HPF (0.0-6.0) 11/27/18 10:40 6.0 /HPF (0.0-6.0) 11/27/18 10:40 2+ /HPF 11/27/18 10:40 Influenza A (Rapid) Negative (Negative) 11/28/18 18:00 Influenza B (Rapid) Negative (Negative) 11/28/18 18:00 Active Medications - Current Medications Current Medications: Generic Name Dose Route Start Last Admin Trade Name Freq PRN Reason Stop Dose Admin Acetaminophen 650 mg 11/27/18 21:29 11/29/18 07:09 Tylenol PO 650 mg Q4H PRN Administration Pain MILD(1-3)/Fever >100.5/RAMIREZ Enoxaparin Sodium 40 mg 11/28/18 22:00 11/28/18 22:47 Lovenox SUB-Q 40 mg QDAY@2200 SERGEY Administration Famotidine 20 mg 11/27/18 22:00 11/28/18 22:49 Pepcid PO 20 mg BID SERGEY Administration Hydromorphone HCl 0.5 mg 11/27/18 21:29 Dilaudid IV Q3H PRN Pain , Severe (7-10) Dextrose/Sodium Chloride 1,000 mls @ 75 mls/hr 11/27/18 22:00 11/29/18 07:13 D5ns IV 75 mls/hr DIRECT SERGEY Administration Levofloxacin/Dextrose 750 mg in 150 mls @ 100 mls/hr 11/28/18 10:00 11/28/18 09:27 Levaquin 750mg/150ml IV 100 mls/hr Q24HR SERGEY Administration Protocol Metronidazole 500 mg in 100 mls @ 100 mls/hr 11/29/18 08:30 Flagyl 500 Mg/100 Ml IV Q8HR SERGEY Protocol Ondansetron HCl 4 mg 11/27/18 21:29 11/28/18 12:33 Zofran IV 4 mg Q8H PRN Administration Nausea And Vomiting Oxycodone/Acetaminophen 1 tab 11/27/18 21:29 Percocet 5/325 PO Q6H PRN Pain, Moderate (4-6) Sodium Chloride 10 ml 11/27/18 22:00 11/28/18 22:47 Sodium Chloride Flush Syringe 10 Ml IV 10 ml BID SERGEY Administration Sodium Chloride 10 ml 11/27/18 21:29 Sodium Chloride Flush Syringe 10 Ml IV PRN PRN LINE FLUSH
[2018-11-29] MEDS ORDERED: FLAGYL 500 MG/100 ML 500 MG/100 ML BAG IV SCH (08:30)
[2018-11-29] MEDS: PEPCID PO SCH ×2 (09:46→21:54)
[2018-11-29] MEDS: LEVAQUIN 750MG/150ML 750 MG/150 ML BAG IV SCH (09:46)
[2018-11-29] MEDS: SODIUM CHLORIDE FLUSH SYRINGE 10 ML IV SCH ×2 (09:47→21:56)
--- NOTE | 2018-11-29 11:57 | Consultation ---
History of Present Illness - Reason for Consult Consult date: 11/29/18 fever Requesting physician: JABARI SHELTON - History of Present Illness 33 y/o male with no known medical history except for syphilis treated with penicillin shot 3 years ago admitted on 11/27/2018 due to 6-day history of malaise, dry cough, frontal headache and fever with chills as well as anal pain and explosive diarrhea multiple times a day. Denies blood in stool or anal rash. He is bisexual. He uses protection inconsistently. He works at the [employer]. He is single, has a roommate. He smokes a ppd, denies tobacco, etoh, drugs. Previous HIV negative 3 years ago. In the ED, temp 102.8, HR 142, R20, BP 100, BP 117/76. WBC 5.9. Hg 15.4. Plat 142-->90. Creat 1.1. Glucose 142. LFTs normal. UA negative. Blood cultures 11/27/2018 no growth today. Urine culture 11/27/2018 no growth today. CTA chest showed no aortic dissection or pulmonary embolism seen. CT of the abdomen and pelvis showed mild fatty infiltration of the liver without suspect focal hepatic lesion, spleen is mildly large and rectal wall thickening with left perirectal and left pelvic lymph nodes. This is thought likely to represent proctitis, but correlation with digital exam is advised to exclude rectal neoplasm. HIV rapid negative. Review of Systems: General: no fever, chills, no malaise Cutaneous: no rash, pruritus Head: no headaches or injury Eyes: no changes in vision, eye pain, double vision Ears: no ear pain, ear discharge, ringing or hearing loss Nose: no nose bleeding, stuffiness Mouth & throat: no bleeding gums, no horseness, no dental problems, or swollen glands Neck: no pain, node enlargement/lumps, tyroid enlargement or tenderness Respiratory: no cough, wheezing, sputum, hemoptysis, pleuritic chest pain Cardiovascular: no chest pain, leg edema, cyanosis, SÁNCHEZ, orthopnea Musculoskeletal: no edema Gastrointestinal: +nausea, vomiting, no hematemesis, diarrhea, constipation, m rama, bright red blood in stools, fecal incontinence, jaundice Genitourinary/Reproductive: + frequent urination, dysuria, hematuria, incontinence Neurogical: no seizures, no headaches, no weakness, no paresthesias, no loss of speech or vision; no memory loss, no vertigo, no tremors, no numbness Psychiatric: stable mood; no excessive anxiety, sadness or moodiness Medications and Allergies Allergies Allergy/AdvReac Type Severity Reaction Status Date / Time No Known Allergies Allergy Verified 06/10/18 11:16 Home Medications Medication Instructions Recorded Confirmed Last Taken Type No Known Home Medications [No 11/28/18 11/28/18 Unknown History Reported Home Medications] Active Meds: Active Medications Acetaminophen (Tylenol) 650 mg PO Q4H PRN PRN Reason: Pain MILD(1-3)/Fever >100.5/RAMIREZ Last Admin: 11/29/18 07:09 Dose: 650 mg Documented by: Enoxaparin Sodium (Lovenox) 40 mg SUB-Q QDAY@2200 SERGEY Last Admin: 11/28/18 22:47 Dose: 40 mg Documented by: Famotidine (Pepcid) 20 mg PO BID SERGEY Last Admin: 11/29/18 09:46 Dose: 20 mg Documented by: Hydromorphone HCl (Dilaudid) 0.5 mg IV Q3H PRN PRN Reason: Pain , Severe (7-10) Dextrose/Sodium Chloride (D5ns) 1,000 mls @ 75 mls/hr IV DIRECT SERGEY Last Admin: 11/29/18 07:13 Dose: 75 mls/hr Documented by: Levofloxacin/Dextrose (Levaquin 750mg/150ml) 750 mg in 150 mls @ 100 mls/hr IV Q24HR SERGEY; Protocol Last Admin: 11/29/18 09:46 Dose: 100 mls/hr Documented by: Metronidazole (Flagyl 500 Mg/100 Ml) 500 mg in 100 mls @ 100 mls/hr IV Q8HR SERGEY; Protocol Last Admin: 11/29/18 09:46 Dose: 100 mls/hr Documented by: Ondansetron HCl (Zofran) 4 mg IV Q8H PRN PRN Reason: Nausea And Vomiting Last Admin: 11/28/18 12:33 Dose: 4 mg Documented by: Oxycodone/Acetaminophen (Percocet 5/325) 1 tab PO Q6H PRN PRN Reason: Pain, Moderate (4-6) Sodium Chloride (Sodium Chloride Flush Syringe 10 Ml) 10 ml IV BID [facility] Last Admin: 11/29/18 09:47 Dose: 10 ml Documented by: Sodium Chloride (Sodium Chloride Flush Syringe 10 Ml) 10 ml IV PRN PRN PRN Reason: LINE FLUSH Physical Examination - Physical Exam Narrative exam: General appearance: Alert in NAD Eyes: anicteric sclerae, moist conjunctivae; no lid-lag; PERRLA HENT: Atraumatic; oropharynx clear with moist mucous membranes and no mucosal ulcerations/no oral thrush; normal hard and soft palate. Normal external ears. Neck: Trachea midline; supple, no thyromegaly or lymphadenopathy Lungs: CTA, with normal respiratory effort and no intercostal retractions CV: RRR no murmur Abdomen: Soft, non-tender; no masses or hepatosplenomegaly Extremities: no edema, cyanosis Skin: Normal temperature, turgor and texture; no rash, ulcers or subcutaneous nodules Psych: Appropriate affect, alert and oriented to person, place and time. Neuro: alert and oriented x 3. Moving all extermities - Constitutional Vitals: Vital Signs Temp Pulse Resp BP Pulse Ox 100.7 F H 100 H 20 115/70 96 11/29/18 11:56 11/28/18 23:25 11/29/18 11:56 11/29/18 11:56 11/28/18 23:25 Temperature -Last 24 Hours Temperature 100.7 F Temperature 100.4 F Temperature 101.6 F Temperature 100.3 F Temperature 100.9 F Results - Labs CBC & Chem 7: 11/28/18 09:37 11/28/18 09:37 Assessment and Plan Cultures: Blood cultures 11/27/2018 no growth today. Urine culture 11/27/2018 no growth today Assessment: 33 y/o male with no known medical history except for syphilis treated with penicillin shot 3 years ago admitted on 11/27/2018 due to 6-day history of malaise, dry cough, frontal headache and fever with chills as well as anal pain and explosive diarrhea multiple times a day: 1) Severe Sepsis: Present on admission, manifested by fever, tachycardia, increased glucose. Etiology most likely acute infectious proctitis +/- bronchitis. 2) Acute infectious proctitis in MSM: should rule out gonorrhea, chlamydia or syphilis proctitis. Doubt HSV as there is not report of painful lesions. CT of the abdomen and pelvis showed mild fatty infiltration of the liver without suspect focal hepatic lesion, spleen is mildly large and rectal wall thickening with left perirectal and left pelvic lymph nodes. This is thought likely to represent proctitis, but correlation with digital exam is advised to exclude rectal neoplasm. 3) Presumed bronchitis: CXR and CTA negative. 4) Thrombocytopenia: ? Recommendations: - follow-up blood cultures, urine culture - check GC and Chlamydia in urine and rectum - check RPR and FTA - check viral hepatitis panel Will follow. Elvi Dior MD Infectious Diseases [employer] [facility] M [phone] O [phone]
--- NOTE | 2018-11-29 12:17 | Event Note ---
Date: 11/29/18 Received consultation for fever. patient with 6-day history of high fever, cough, malaise, anal pain and diarrhea. Patient is bisexual and history of syphilis treated several years ago. CT showed evidence of proctitis. Denies rectal bleeding or anal sores/ulcers. CTA no infiltrates or effusions. HIV rapid negative. Will check GC, chlamydia in urine and rectal swab. Check RPR/FTA. Start ceftriaoxone 2 gm IV aday and doxycycline po for now. Full consultation to follow.
[2018-11-29] MEDS ORDERED: ROCEPHIN/NS 2 GM/100 ML 2 GM/100 ML BAG IV SCH (13:00)
[2018-11-29] MEDS: DOXYCYCLINE HYCLATE 100 MG in NACL 0.9% 250ML 250 ML IV SCH ×2 (14:11→21:54)
[2018-11-29] MEDS: ROCEPHIN/NS 2 GM/100 ML 2 GM/100 ML BAG IV SCH (16:30)
[2018-11-29 18:15] LABS: Hepatitis C Virus Antibody Non-Reactive (NonReactive)
[2018-11-29 18:45] LABS: Hepatitis B Surface Antigen Non-Reactive (Negative)
[2018-11-29] MEDS: LOVENOX SUB-Q SCH (21:54)
[2018-11-29] MEDS: AMBIEN PO PRN (23:30)
[2018-11-29] MEDS: TESSALON PERLES PO SCH (23:30)
[2018-11-30] MEDS: ZOFRAN IV PRN (03:03)
[2018-11-30] MEDS: TESSALON PERLES PO SCH ×3 (06:13→22:36)
[2018-11-30] MEDS: TYLENOL PO PRN ×2 (12:06→18:08)
[2018-11-30] MEDS: D5NS 1,000 ML IV SCH (12:07)
[2018-11-30] MEDS: DOXYCYCLINE HYCLATE 100 MG in NACL 0.9% 250ML 250 ML IV SCH ×2 (12:10→22:48)
[2018-11-30] MEDS: SODIUM CHLORIDE FLUSH SYRINGE 10 ML IV SCH ×2 (12:15→22:44)
[2018-11-30] MEDS: PEPCID PO SCH ×2 (12:15→22:37)
[2018-11-30] MEDS: ROCEPHIN/NS 2 GM/100 ML 2 GM/100 ML BAG IV SCH (12:15)
--- NOTE | 2018-11-30 12:36 | Progress Note ---
Assessment and Plan Assessment and plan: hest pain 1 day Cough 4 days History of present illness: 33-year-old male with cough fever chills nausea and some chest discomfort. Chest discomfort is largely related to cough. However there is some pain on inspiration. Patient states that he had a "walking pneumonia in the past". He takes no chronic medication. He's had no pneumonia vaccines. Past Medical History Additional medical history: "Walking pneumonia" CT A/P; proctitis with daisy-rectal LAD Diagnosis Acute infectious Proctitis Sepsis viral syndrome? Cough and pleuritic chest pain hyponatremia hypokalemia CTA chest negative plan cont abx per ID fup, RNA PCR and cd 4 count, syphylis, G&C the following tests have been neg; U cx, blood cx, HIV serology, Hepatitis serology, influenza swab dvt ppx- early ambulation History Interval history: Review of systems Constitutional: Continues to have fevers, no malaise, no joint pains CVS: No chest pain, no orthopnea, no pedal edema GI: No abdominal pain, no diarrhea, no vomiting, no constipation Respiratory: No shortness of breath, no wheezing, no coughing Hospitalist Physical - Physical exam Narrative exam: General.: Appears well, no distress, nontoxic HEENT: Moist mucous membranes, extraocular muscles intact, no lymphadenopathy Neck: supple Cardiac: S1-S2 heard Lungs: clear to auscultation bilaterally Abdomen: soft , nontender, nondistended, bowel sounds positive Extremities: no edema clubbing or cyanosis Skin: no rash or lesions Neurologic: no gross focal deficits Psych: calm, and cooperative - Constitutional Vitals: Temp Pulse Resp BP Pulse Ox 103.0 F H 109 H 20 122/72 94 11/30/18 11:38 11/30/18 11:38 11/30/18 11:38 11/30/18 11:38 11/30/18 11:38 General appearance: Present: no acute distress, well-nourished Results - Labs CBC & Chem 7: 11/28/18 09:37 11/28/18 09:37 Labs: Laboratory Last Values WBC 3.0 K/mm3 (4.5-11.0) L 11/28/18 09:37 RBC 4.87 M/mm3 (3.65-5.03) 11/28/18 09:37 Hgb 15.0 gm/dl (11.8-15.2) 11/28/18 09:37 Hct 43.0 % (35.5-45.6) 11/28/18 09:37 MCV 88 fl (84-94) 11/28/18 09:37 MCH 31 pg (28-32) 11/28/18 09:37 MCHC 35 % (32-34) H 11/28/18 09:37 RDW 13.5 % (13.2-15.2) 11/28/18 09:37 Plt Count 99 K/mm3 (140-440) L 11/28/18 09:37 Lymph % (Auto) 35.0 % (13.4-35.0) 11/28/18 09:37 [place] % (Auto) 8.6 % (0.0-7.3) H 11/28/18 09:37 Eos % (Auto) 0.0 % (0.0-4.3) 11/28/18 09:37 Baso % (Auto) 1.3 % (0.0-1.8) 11/28/18 09:37 Lymph # 1.1 K/mm3 (1.2-5.4) L 11/28/18 09:37 [place] # 0.3 K/mm3 (0.0-0.8) 11/28/18 09:37 Eos # 0.0 K/mm3 (0.0-0.4) 11/28/18 09:37 Baso # 0.0 K/mm3 (0.0-0.1) 11/28/18 09:37 Seg Neutrophils % 55.1 % (40.0-70.0) 11/28/18 09:37 Seg Neutrophils # 1.7 K/mm3 (1.8-7.7) L 11/28/18 09:37 PT 14.6 Sec. (12.2-14.9) 11/27/18 09:15 INR 1.07 (0.87-1.13) 11/27/18 09:15 VBG pH 7.413 (7.320-7.420) 11/27/18 09:15 Sodium 131 mmol/L (137-145) L 11/28/18 09:37 Potassium 3.4 mmol/L (3.6-5.0) L 11/28/18 09:37 Chloride 96.3 mmol/L (98-107) L 11/28/18 09:37 Carbon Dioxide 22 mmol/L (22-30) 11/28/18 09:37 16 mmol/L 11/28/18 09:37 BUN 6 mg/dL (9-20) L 11/28/18 09:37 0.9 mg/dL (0.8-1.5) 11/28/18 09:37 Estimated GFR > 60 ml/min 11/28/18 09:37 7 % 11/28/18 09:37 Glucose 141 mg/dL (75-100) H 11/28/18 09:37 5.0 % (4-6) 11/27/18 09:15 Lactic Acid 0.40 mmol/L (0.7-2.0) L 11/27/18 12:09 Calcium 8.1 mg/dL (8.4-10.2) L 11/28/18 09:37 0.40 mg/dL (0.1-1.2) 11/28/18 09:37 AST 24 units/L (5-40) 11/28/18 09:37 ALT 24 units/L (7-56) 11/28/18 09:37 40 units/L (35-129) 11/28/18 09:37 < 0.010 ng/mL (0.00-0.029) 11/28/18 14:50 0.40 mg/dL (0.00-1.30) 11/29/18 17:30 6.7 g/dL (6.3-8.2) 11/28/18 09:37 3.8 g/dL (3.9-5) L 11/28/18 09:37 1.3 % 11/28/18 09:37 TSH 0.510 mlU/mL (0.270-4.200) 11/27/18 16:00 Free T4 0.92 ng/dL (0.76-1.46) 11/27/18 16:00 [place] (Yellow) 11/27/18 10:40 Slightly-cloudy (Clear) 11/27/18 10:40 5.0 (5.0-7.0) 11/27/18 10:40 Ur Specific [place] 1.029 (1.003-1.030) 11/27/18 10:40 30 mg/dl mg/dL (Negative) 11/27/18 10:40 Neg mg/dL (Negative) 11/27/18 10:40 Tr mg/dL (Negative) 11/27/18 10:40 Sm (Negative) 11/27/18 10:40 Neg (Negative) 11/27/18 10:40 Neg (Negative) 11/27/18 10:40 4.0 mg/dL (<2.0) 11/27/18 10:40 Ur Leukocyte Esterase Neg (Negative) 11/27/18 10:40 4.0 /HPF (0.0-6.0) 11/27/18 10:40 6.0 /HPF (0.0-6.0) 11/27/18 10:40 2+ /HPF 11/27/18 10:40 Hepatitis A IgM Ab Non-reactive (NonReactive) 11/29/18 17:30 Hep Bs Antigen Non-reactive (Negative) 11/29/18 17:30 Hep B Core IgM Ab Non-reactive (NonReactive) 11/29/18 17:30 Non-reactive (NonReactive) 11/29/18 17:30 HIV 1&2 Antibody Rapid Non react (Non React) 11/29/18 08:24 Non react (Non React) 11/29/18 08:24 Influenza A (Rapid) Negative (Negative) 11/28/18 18:00 Influenza B (Rapid) Negative (Negative) 11/28/18 18:00 Active Medications - Current Medications Current Medications: Generic Name Dose Route Start Last Admin Trade Name Freq PRN Reason Stop Dose Admin Acetaminophen 650 mg 11/27/18 21:29 11/30/18 12:06 Tylenol PO 650 mg Q4H PRN Administration Pain MILD(1-3)/Fever >100.5/RAMIREZ Benzonatate 200 mg 11/29/18 22:00 11/30/18 06:13 Tessalon Perles PO 200 mg Q8HR SERGEY Administration Enoxaparin Sodium 40 mg 11/28/18 22:00 11/29/18 21:54 Lovenox SUB-Q 40 mg QDAY@2200 SERGEY Administration Famotidine 20 mg 11/27/18 22:00 11/30/18 12:15 Pepcid PO 20 mg BID SERGEY Administration Hydromorphone HCl 0.5 mg 11/27/18 21:29 11/30/18 03:03 Dilaudid IV 0.5 mg Q3H PRN Administration Pain , Severe (7-10) Doxycycline Hyclate 100 mg/ 250 mls @ 250 mls/hr 11/29/18 14:00 11/30/18 12:10 Sodium Chloride IV 250 mls/hr Q12HR SERGEY Administration Protocol Ceftriaxone Sodium 2 gm in 100 mls @ 200 mls/hr 11/29/18 14:00 11/30/18 12:15 Rocephin/Ns 2 Gm/100 Ml IV 200 mls/hr Q24HR SERGEY Administration Ondansetron HCl 4 mg 11/27/18 21:29 11/30/18 03:03 Zofran IV 4 mg Q8H PRN Administration Nausea And Vomiting Oxycodone/Acetaminophen 1 tab 11/27/18 21:29 Percocet 5/325 PO Q6H PRN Pain, Moderate (4-6) Sodium Chloride 10 ml 11/27/18 22:00 11/30/18 12:15 Sodium Chloride Flush Syringe 10 Ml IV 10 ml BID SERGEY Administration Sodium Chloride 10 ml 11/27/18 21:29 Sodium Chloride Flush Syringe 10 Ml IV PRN PRN LINE FLUSH Zolpidem Tartrate 5 mg 11/29/18 22:09 11/29/18 23:30 Ambien PO 5 mg QHS PRN Administration Sleep
--- NOTE | 2018-11-30 21:19 | Progress Note ---
Assessment and Plan Cultures: Blood cultures 11/27/2018 no growth today. Urine culture 11/27/2018 no growth today Assessment: 33 y/o male with no known medical history except for syphilis treated with penicillin shot 3 years ago admitted on 11/27/2018 due to 6-day history of malaise, dry cough, frontal headache and fever with chills as well as anal pain and explosive diarrhea multiple times a day: 1) Severe Sepsis: Present on admission, manifested by fever, tachycardia, increased glucose. Etiology most likely acute infectious proctitis +/- bronchitis. 2) Acute infectious proctitis in MSM: should rule out gonorrhea, chlamydia or syphilis proctitis. Doubt HSV as there is not report of painful lesions. CT of the abdomen and pelvis showed mild fatty infiltration of the liver without suspect focal hepatic lesion, spleen is mildly large and rectal wall thickening with left perirectal and left pelvic lymph nodes. This is thought likely to represent proctitis, but correlation with digital exam is advised to exclude rectal neoplasm. RPR=1:1. 3) Presumed bronchitis: CXR and CTA negative. 4) Thrombocytopenia: ? Recommendations: - if fever continues please consider GI med eval for rectosig - continue ceftriaxone 2 gm IV qday, doxycycline 100 mg BID - add acyclovir IV to cover HSV - doubt HSV but in light of persistent fever - check HSV2 serology - follow-up blood cultures, urine culture - check GC and Chlamydia in urine and rectum - check viral hepatitis panel - pending Will follow. Elvi Dior MD Infectious Diseases [facility] M [phone] O [phone] Subjective Date of service: 11/30/18 Principal diagnosis: fever Interval history: Patient feels the same, still high fever. No diarrhea. No anal rash. Objective - Exam Narrative Exam: General appearance: Alert in NAD Eyes: anicteric sclerae, moist conjunctivae; no lid-lag; PERRLA HENT: Atraumatic; oropharynx clear with moist mucous membranes and no mucosal ulcerations/no oral thrush; normal hard and soft palate. Normal external ears. Neck: Trachea midline; supple, no thyromegaly or lymphadenopathy Lungs: CTA, with normal respiratory effort and no intercostal retractions CV: RRR no murmur Abdomen: Soft, non-tender; no masses or hepatosplenomegaly Extremities: no edema, cyanosis Skin: Normal temperature, turgor and texture; no rash, ulcers or subcutaneous nodules Psych: Appropriate affect, alert and oriented to person, place and time. Neuro: alert and oriented x 3. Moving all extermities - Constitutional Vitals: Vital Signs Temp Pulse Resp BP Pulse Ox 101.3 F H 98 H 20 108/72 90 11/30/18 16:40 11/30/18 16:40 11/30/18 16:40 11/30/18 16:40 11/30/18 16:40 Temperature -Last 24 Hours Temperature 101.3 F Temperature 103.0 F Temperature 98.2 F Temperature 98.0 F - Labs CBC & Chem 7: 11/28/18 09:37 11/28/18 09:37
[2018-11-30] MEDS: LOVENOX SUB-Q SCH (22:36)
[2018-11-30] MEDS: ZOVIRAX 1,000 MG in NACL 0.9% 100 ML IV SCH (22:37)
[2018-11-30] MEDS: AMBIEN PO PRN (22:43)
[2018-11-30] MEDS ORDERED: NACL 0.9% 250ML 250 ML ONE (22:44)
[2018-12-01] MEDS: TESSALON PERLES PO SCH ×3 (06:07→22:01)
[2018-12-01] MEDS: TYLENOL PO PRN ×3 (06:07→22:07)
[2018-12-01] MEDS: ZOVIRAX 1,000 MG in NACL 0.9% 100 ML IV SCH ×3 (06:10→22:02)
[2018-12-01] MEDS: PEPCID PO SCH ×2 (09:43→22:01)
[2018-12-01] MEDS: ROCEPHIN/NS 2 GM/100 ML 2 GM/100 ML BAG IV SCH (09:43)
[2018-12-01] MEDS: DOXYCYCLINE HYCLATE 100 MG in NACL 0.9% 250ML 250 ML IV SCH ×2 (09:44→23:36)
[2018-12-01] MEDS: SODIUM CHLORIDE FLUSH SYRINGE 10 ML IV SCH (09:44)
[2018-12-01] MEDS ORDERED: NACL 0.9% 1000 ML 1,000 ML IV ONE (13:36)
[2018-12-01 14:49] LABS: CD4/CD8 Ratio 1.08 (0.86-5.00)
--- NOTE | 2018-12-01 17:46 | Progress Note ---
Assessment and Plan Acute infectious Proctitis Sepsis viral syndrome Cough and pleuritic chest pain hyponatremia hypokalemia CTA chest negative plan cont abx per ID fup, RNA PCR and cd 4 count, syphylis, G&C the following tests have been neg; U cx, blood cx, HIV serology, Hepatitis serology, influenza swab Subjective Date of service: 12/01/18 Principal diagnosis: fever Interval history: Continues to have fever Objective - Constitutional Vitals: Vital Signs - 12hr 12/01/18 12/01/18 12/01/18 07:08 11:53 17:01 Temperature 98.1 F 100.4 F H 102.9 F H Pulse Rate 109 H 98 H Respiratory 20 24 Rate Blood Pressure 94/61 117/73 O2 Sat by Pulse 93 93 Oximetry General appearance: Present: no acute distress, well-nourished - EENT Eyes: PERRL, EOM intact ENT: hearing intact, clear oral mucosa Ears: bilateral: normal - Neck Neck: supple, normal ROM - Respiratory Respiratory effort: normal Respiratory: bilateral: CTA - Breasts Breasts: normal - Cardiovascular Heart rate: 88 Rhythm: regular Heart Sounds: Present: S1 & S2. Absent: gallop, rub Extremities: pulses intact, No edema, normal color, Full ROM - Gastrointestinal General gastrointestinal: Present: soft, non-tender, non-distended, normal bowel sounds - Genitourinary Male genitourinary: normal - Integumentary Integumentary: clear, warm, dry - Musculoskeletal Musculoskeletal: 1, strength equal bilaterally - Neurologic Neurologic: moves all extremities - Psychiatric Psychiatric: memory intact, appropriate mood/affect, intact judgment & insight - Labs CBC & Chem 7: 12/03/18 05:25 12/03/18 05:25 Labs: Abnormal lab results 11/29/18 11/29/18 Range/Units 08:24 12:44 Absolute CD3 Count 766 L (840-3060) cells/uL Absolute CD4 Count 391 L (490-1740) cells/uL Absolute CD19 Count 82 L (110-660) cells/uL T.pallidum Ab (FTA-ABS) Reactive H (Nonreactive)
[2018-12-01 18:01] LABS: HIV-1 RNA QN PCR 5.8 Log cps/mL
--- NOTE | 2018-12-01 19:22 | Progress Note ---
Assessment and Plan Cultures: Blood cultures 11/27/2018 no growth today. Urine culture 11/27/2018 no growth today Assessment: 33 y/o male with no known medical history except for syphilis treated with penicillin shot 3 years ago admitted on 11/27/2018 due to 6-day history of malaise, dry cough, frontal headache and fever with chills as well as anal pain and explosive diarrhea multiple times a day: 1) Severe Sepsis: still fever. Etiology unclear ? acute infectious proctitis +/- bronchitis+/-?PJP. 2) Acute infectious proctitis in MSM: should rule out gonorrhea, chlamydia or syphilis proctitis. Doubt HSV as there is not report of painful lesions. CT of the abdomen and pelvis showed mild fatty infiltration of the liver without suspect focal hepatic lesion, spleen is mildly large and rectal wall thickening with left perirectal and left pelvic lymph nodes. This is thought likely to represent proctitis, but correlation with digital exam is advised to exclude rectal neoplasm. RPR=1:1 (history of syphilis treated 3 years ago). 3) Presumed bronchitis: CXR and CTA negative. + ?PJP 4) ?Newly diagnosed HIV: HIV rapid non reactive, however KN=188,000. 5) Thrombocytopenia: ? Recommendations: - patient counseled regarding HIV VL results - check CD4/HIV genotype - check cryptococcal antigen - start bactrim IV to cover PJP empirically in light of persistent fever - continue ceftriaxone 2 gm IV qday, doxycycline 100 mg BID - continue acyclovir IV to cover rectal HSV - doubt HSV but in light of persistent fever - f/u HSV2 serology - f/u GC and Chlamydia in urine and rectum Dr Martines will be rounding tomorrow Elvi Dior MD Infectious Diseases [facility] ([facility] M [phone] O [phone] Subjective Date of service: 12/01/18 Principal diagnosis: fever Interval history: Patient feels better, still high fever. No diarrhea. No anal rash. Objective - Constitutional Vitals: Vital Signs Temp Pulse Resp BP Pulse Ox 102.9 F H 98 H 24 117/73 93 12/01/18 17:01 12/01/18 17:01 12/01/18 17:01 12/01/18 17:01 12/01/18 17:01 Temperature -Last 24 Hours Temperature 102.9 F Temperature 100.4 F Temperature 98.1 F Temperature 101.3 F Temperature 100.1 F Temperature 101.3 F - Labs CBC & Chem 7: 11/28/18 09:37 11/28/18 09:37 Labs: Abnormal lab results 11/29/18 11/29/18 11/29/18 Range/Units 08:24 08:24 12:44 Absolute CD3 Count 766 L (840-3060) cells/uL Absolute CD4 Count 391 L (490-1740) cells/uL Absolute CD19 Count 82 L (110-660) cells/uL T.pallidum Ab (FTA-ABS) Reactive H (Nonreactive) HIV-1 RNA PCR copies/ml 428644 H Copies/mL HIV-1 RNA (PCR) log 5.80 H Log cps/mL
[2018-12-01] MEDS: BACTRIM 400 MG in D5W 500 ML IV SCH (20:44)
[2018-12-01] MEDS: LOVENOX SUB-Q SCH (22:01)
[2018-12-01] MEDS: AMBIEN PO PRN (22:07)
[2018-12-02] MEDS: BACTRIM 400 MG in D5W 500 ML IV SCH ×3 (03:50→12:25)
[2018-12-02] MEDS: TYLENOL PO PRN ×2 (05:51→12:56)
[2018-12-02] MEDS: TESSALON PERLES PO SCH ×3 (05:51→22:17)
[2018-12-02] MEDS: ZOVIRAX 1,000 MG in NACL 0.9% 100 ML IV SCH ×3 (05:57→22:18)
[2018-12-02] MEDS: ROCEPHIN/NS 2 GM/100 ML 2 GM/100 ML BAG IV SCH (09:09)
[2018-12-02] MEDS: SODIUM CHLORIDE FLUSH SYRINGE 10 ML IV SCH ×2 (09:10→22:18)
[2018-12-02] MEDS: PEPCID PO SCH ×2 (09:10→22:17)
[2018-12-02] MEDS: DOXYCYCLINE HYCLATE 100 MG in NACL 0.9% 250ML 250 ML IV SCH ×2 (09:16→22:18)
--- NOTE | 2018-12-02 15:09 | Progress Note ---
Assessment and Plan Cultures: Blood cultures 11/27/2018 no growth today. Urine culture 11/27/2018 no growth today Assessment: 33 y/o male with no known medical history except for syphilis treated with penicillin shot 3 years ago admitted on 11/27/2018 due to 6-day history of malaise, dry cough, frontal headache and fever with chills as well as anal pain and explosive diarrhea multiple times a day: 1) Severe Sepsis: still fever. Etiology is likely acute retroviral syndrome. 2) Acute infectious proctitis in MSM/bisexual: awaiting GC testing. Continue empiric Ceftriaxone and Doxycycline. RPR=1:1 (history of syphilis treated 3 years ago). 3) Presumed bronchitis: CXR and CTA negative. Unlikely PCP pneumonia. D/lenin bactrim. 4) Acute retroviral syndrome: HIV rapid non reactive, however BD=838,000. 5) Thrombocytopenia: secondary to HIV Recommendations: - patient counseled again regarding HIV PCR results, unlikely to be false positive - fevers, rash, lymphadenopathy, headache, etc. all likely secondary to acute retroviral syndrome - continue ceftriaxone 2 gm IV qday, doxycycline 100 mg BID for STD coverage for now, f/u GC testing - continue acyclovir IV to cover rectal HSV - f/u HSV2 serology D/W Dr. Fragoso. Akira Martines MD [facility], [place] C: [phone] O: [phone] F: [phone] Subjective Date of service: 12/02/18 Principal diagnosis: fever Interval history: Fever still present. No cough or SOB. No rectal pain. No other complaints. Worried about HIV diagnosis about possibility of it being false positive. Objective - Exam Narrative Exam: Physical Exam: Constitutional: Alert, cooperative. No acute distress Head, Ears, Nose: Normocephalic, atraumatic. External ears, nose normal Eyes: erythema in conjunctivae. No icterus. No ptosis. Neck: Supple, no meningeal signs Oral: dentition fair, no thrush Cardiovascular: S1, S2 normal. Respiratory: Good air entry, clear to auscultation bilaterally GI: Soft, non-tender; bowel sounds normal. No peritoneal signs Musculoskeletal: No pedal edema, no cyanosis. Skin: No rash or abscess Hem/Lymphatic: No palpable cervical or supraclavicular nodes. No lymphangitis Psych: Mood ok. Affect normal Neurological: Awake, alert, oriented. No gross abnormality - Constitutional Vitals: Vital Signs Temp Pulse Resp BP Pulse Ox 99.6 F 104 H 18 115/67 93 12/02/18 12:38 12/02/18 12:38 12/02/18 12:38 12/02/18 12:38 12/02/18 12:38 Temperature -Last 24 Hours Temperature 99.6 F Temperature 102.5 F Temperature 98.5 F Temperature 102.9 F - Labs CBC & Chem 7: 11/28/18 09:37 11/28/18 09:37 Labs: Abnormal lab results 11/29/18 11/29/18 Range/Units 08:24 12:44 T.pallidum Ab (FTA-ABS) Reactive H (Nonreactive) HIV-1 RNA PCR copies/ml [id number] H Copies/mL HIV-1 RNA (PCR) log 5.80 H Log cps/mL
--- NOTE | 2018-12-02 17:06 | Progress Note ---
Assessment and Plan HIV--- newly diagnosed Acute infectious Proctitis Sepsis viral syndrome Cough and pleuritic chest pain hyponatremia--resolved hypokalemia--- resolved CTA chest negative plan Newly diagnosed HIV: HIV rapid non reactive, however MP=233,000. Antiretrovirals as per ID - Patient Problems (1) SIRS (systemic inflammatory response syndrome) Current Visit: Yes Status: Deleted (2) Acute bronchitis Current Visit: Yes Status: Deleted Qualifiers: Bronchitis organism: unspecified organism Qualified Code(s): J20.9 - Acute bronchitis, unspecified (3) Chest pain Current Visit: Yes Status: Deleted Qualifiers: Chest pain type: unspecified Qualified Code(s): R07.9 - Chest pain, unspecified (4) Hyponatremia Current Visit: Yes Status: Deleted (5) Hypokalemia Current Visit: Yes Status: Deleted (6) DVT prophylaxis Current Visit: Yes Status: Deleted Subjective Date of service: 12/02/18 Principal diagnosis: fever Interval history: Continues to have fever Patient informed about his diagnosis of HIV Objective - Constitutional Vitals: Vital Signs - 12hr 12/02/18 12/02/18 05:07 12:38 Temperature 102.5 F H 99.6 F Pulse Rate 121 H 104 H Respiratory 24 18 Rate Blood Pressure 105/72 115/67 O2 Sat by Pulse 92 93 Oximetry General appearance: Present: no acute distress, well-nourished - EENT Eyes: PERRL, EOM intact ENT: hearing intact, clear oral mucosa Ears: bilateral: normal - Neck Neck: supple, normal ROM - Respiratory Respiratory effort: normal Respiratory: bilateral: CTA - Breasts Breasts: normal - Cardiovascular Heart rate: 78 Rhythm: regular Heart Sounds: Present: S1 & S2. Absent: gallop, rub Extremities: no ischemia, pulses intact, No edema, normal color, Full ROM - Gastrointestinal General gastrointestinal: Present: soft, non-tender, non-distended, normal bowel sounds - Genitourinary Male genitourinary: normal - Integumentary Integumentary: clear, warm, dry - Musculoskeletal Musculoskeletal: 1, strength equal bilaterally - Neurologic Neurologic: moves all extremities - Psychiatric Psychiatric: memory intact, appropriate mood/affect, intact judgment & insight - Allied health notes Allied health notes reviewed: nursing, case management - Labs CBC & Chem 7: 12/03/18 05:25 12/03/18 05:25 Labs: Abnormal lab results 11/29/18 Range/Units 08:24 HIV-1 RNA PCR copies/ml [id number] H Copies/mL HIV-1 RNA (PCR) log 5.80 H Log cps/mL
[2018-12-02] MEDS ORDERED: MYLICON PO PRN (21:21)
[2018-12-02] MEDS: LOVENOX SUB-Q SCH (22:17)
[2018-12-03] MEDS: ZOVIRAX 1,000 MG in NACL 0.9% 100 ML IV SCH ×3 (06:44→21:02)
[2018-12-03] MEDS: TESSALON PERLES PO SCH ×3 (06:44→21:02)
[2018-12-03 06:57] LABS: Hematocrit 42.3 % (35.5-45.6); Hemoglobin 14.6 gm/dl (11.8-15.2); Mean Corpuscular HGB Conc 35 % (32-34); Mean Corpuscular Volume 88 fl (84-94); Red Blood Count 4.79 M/mm3 (3.65-5.03); Red Cell Distribution Width 13.7 % (13.2-15.2)
[2018-12-03 07:10] LABS: Platelet Count 66 K/mm3 (140-440)
[2018-12-03 07:23] LABS: Alanine Aminotransferase 246 units/L (7-56); Albumin 3.2 g/dL (3.9-5); BUN/Creatinine Ratio 8; Blood Urea Nitrogen 6 mg/dL (9-20); Hemolysis Index 9
[2018-12-03] MEDS: ROCEPHIN/NS 2 GM/100 ML 2 GM/100 ML BAG IV SCH (09:25)
[2018-12-03] MEDS: PEPCID PO SCH ×2 (09:25→21:03)
[2018-12-03] MEDS: SODIUM CHLORIDE FLUSH SYRINGE 10 ML IV SCH ×3 (09:26→22:12)
[2018-12-03 10:08] LABS: Basophils % (Manual) 0 % (0.0-1.8); Total Cells Counted 100
[2018-12-03 10:09] LABS: Eosinophils % (Manual) 0 % (0.0-4.3)
[2018-12-03 10:13] LABS: Platelet Estimate Consistent w Auto; RBC Morphology Normal
[2018-12-03] MEDS: DOXYCYCLINE HYCLATE 100 MG in NACL 0.9% 250ML 250 ML IV SCH ×2 (11:18→22:12)
--- NOTE | 2018-12-03 15:01 | Progress Note ---
Assessment and Plan HIV--- newly diagnosed Acute infectious Proctitis Sepsis viral syndrome Cough and pleuritic chest pain hyponatremia--resolved hypokalemia--- resolved CTA chest negative plan Newly diagnosed HIV: HIV rapid non reactive, however XQ=909,000. Antiretrovirals as per ID continue ceftriaxone 2 gm IV qday, doxycycline 100 mg BID for STD coverage for now, f/u GC testing - continue acyclovir IV to cover rectal HSV - f/u HSV2 serology Discharge plans --- will discuss with ID Subjective Date of service: 12/03/18 Principal diagnosis: fever Interval history: Afebrile overnight Patient informed about his diagnosis of HIV--yesterday Objective - Constitutional Vitals: Vital Signs - 12hr 12/03/18 12/03/18 12/03/18 05:48 10:00 11:04 Temperature 99.1 F 97.7 F Pulse Rate 102 H 114 H Respiratory 24 20 20 Rate Blood Pressure 132/78 119/69 O2 Sat by Pulse 94 96 Oximetry General appearance: Present: no acute distress, well-nourished - EENT Eyes: PERRL, EOM intact ENT: hearing intact, clear oral mucosa Ears: bilateral: normal - Neck Neck: supple, normal ROM - Respiratory Respiratory effort: normal Respiratory: bilateral: CTA - Breasts Breasts: normal - Cardiovascular Rhythm: regular Heart Sounds: Present: S1 & S2. Absent: gallop, rub Extremities: pulses intact, No edema, normal color, Full ROM - Gastrointestinal General gastrointestinal: Present: soft, non-tender, non-distended, normal bowel sounds - Genitourinary Male genitourinary: normal - Integumentary Integumentary: clear, warm, dry - Musculoskeletal Musculoskeletal: 1, strength equal bilaterally - Neurologic Neurologic: moves all extremities - Psychiatric Psychiatric: memory intact, appropriate mood/affect, intact judgment & insight - Labs CBC & Chem 7: 12/03/18 05:25 12/03/18 05:25 Labs: Abnormal lab results 12/03/18 12/03/18 Range/Units 05:25 05:25 WBC 1.7 L* (4.5-11.0) K/mm3 MCHC 35 H (32-34) % Plt Count 66 L (140-440) K/mm3 Seg Neutrophils # Man 1.2 L (1.8-7.7) K/mm3 Lymphocytes # (Manual) 0.4 L (1.2-5.4) K/mm3 Sodium 135 L (137-145) mmol/L Chloride 96.7 L (98-107) mmol/L BUN 6 L (9-20) mg/dL Calcium 8.0 L (8.4-10.2) mg/dL AST 346 H (5-40) units/L ALT 246 H (7-56) units/L Alkaline Phosphatase 31 L (35-129) units/L Total Protein 6.0 L (6.3-8.2) g/dL Albumin 3.2 L (3.9-5) g/dL
[2018-12-03] MEDS ORDERED: BENADRYL IV ONE (20:37)
[2018-12-03] MEDS: LOVENOX SUB-Q SCH (22:12)
[2018-12-04] MEDS: ZOVIRAX 1,000 MG in NACL 0.9% 100 ML IV SCH (05:50)
[2018-12-04] MEDS: TESSALON PERLES PO SCH ×2 (05:50→14:21)
[2018-12-04] MEDS: PEPCID PO SCH (10:02)
[2018-12-04] MEDS: ROCEPHIN/NS 2 GM/100 ML 2 GM/100 ML BAG IV SCH (10:02)
[2018-12-04] MEDS: SODIUM CHLORIDE FLUSH SYRINGE 10 ML IV SCH (10:03)
--- NOTE | 2018-12-04 11:02 | Progress Note ---
Assessment and Plan Cultures: Blood cultures 11/27/2018 no growth Urine culture 11/27/2018 no growth Assessment: 33 y/o male with no known medical history except for syphilis treated with penicillin shot 3 years ago admitted on 11/27/2018 due to 6-day history of malaise, dry cough, frontal headache and fever with chills as well as anal pain and explosive diarrhea multiple times a day: 1) Severe Sepsis: still fever. Etiology is likely acute retroviral syndrome. 2) Acute infectious proctitis in MSM/bisexual: GC testing negative. Will d/c abx. RPR=1:1 (history of syphilis treated 3 years ago). 3) Presumed bronchitis: CXR and CTA negative. Unlikely PCP pneumonia. D/lenin bactrim. 4) Acute retroviral syndrome: HIV rapid non reactive, however XU=147,000. 5) Thrombocytopenia: secondary to HIV Recommendations: - d/lenin Ceftriaxone, Doxycycline, Acyclovir - CBC ordered, if shows stable to improvement in WBC and platelets, OK to discharge from ID standpoint - patient already has contact info to our office, states he will follow up with Dr. Rankin - please do not disclose the HIV diagnosis to his family members as per patient request D/W Dr. Fragoso. Akira Martines MD [facility] C: [phone] O: [phone] F: [phone] Subjective Date of service: 12/04/18 Principal diagnosis: fever Interval history: No fever. Feels well. No nausea, vomiting. no diarrhea. no cough. Objective - Exam Narrative Exam: Physical Exam: Constitutional: Alert, cooperative. No acute distress Head, Ears, Nose: Normocephalic, atraumatic. External ears, nose normal Eyes: erythema in conjunctivae. No icterus. No ptosis. Neck: Supple, no meningeal signs Oral: dentition fair, no thrush Cardiovascular: S1, S2 normal. Respiratory: Good air entry, clear to auscultation bilaterally GI: Soft, non-tender; bowel sounds normal. No peritoneal signs Musculoskeletal: No pedal edema, no cyanosis. Skin: No rash or abscess Hem/Lymphatic: No palpable cervical or supraclavicular nodes. No lymphangitis Psych: Mood ok. Affect normal Neurological: Awake, alert, oriented. No gross abnormality - Constitutional Vitals: Vital Signs Temp Pulse Resp BP Pulse Ox 98.4 F 92 H 20 116/73 95 12/04/18 06:19 12/04/18 06:19 12/04/18 06:19 12/04/18 06:19 12/04/18 06:19 Temperature -Last 24 Hours Temperature 98.4 F Temperature 97.7 F Temperature 97.3 F Temperature 97.7 F - Labs CBC & Chem 7: 12/03/18 05:25 12/03/18 05:25
[2018-12-04] MEDS: DOXYCYCLINE HYCLATE 100 MG in NACL 0.9% 250ML 250 ML IV SCH (12:04)
[2018-12-04 12:59] VITALS: BP 128/77
--- NOTE | 2018-12-04 13:07 | Discharge Summary ---
Providers - Providers Date of Admission: 11/27/18 15:54 Date of discharge: 12/04/18 Attending physician: ELA FARR 11/28/18 10:21 Consult to Physician [CONS] Routine Comment: Consulting Provider: EMELY HAIDER Physician Instructions: Reason For Exam: fever [facility] Condition: Stable Hospital course: Sepsis: s fever.better Etiology is likely acute retroviral syndrome. HIV--- newly diagnosed Acute infectious proctitis in MSM/bisexual: GC testing negative. Will d/c abx. RPR=1:1 (history of syphilis treated 3 years ago). Presumed bronchitis: CXR and CTA negative. Unlikely PCP pneumonia. D/lenin bactrim. Acute retroviral syndrome: HIV rapid non reactive, however MZ=339,000. Thrombocytopenia: secondary to HIV Acute infectious Proctitis Cough and pleuritic chest pain--Sec to Bronchitis hyponatremia--resolved hypokalemia--- resolved CTA chest negative Diuscharge today F/u with ID clinic Disposition: - TO HOME OR SELFCARE Core Measure Documentation - Palliative Care Palliative Care/ Comfort Measures: Not Applicable - Core Measures Any of the following diagnoses?: none Exam - Constitutional Vitals: Temp Pulse Resp BP Pulse Ox 98.1 F 98 H 20 128/77 94 12/04/18 11:50 12/04/18 11:50 12/04/18 11:50 12/04/18 11:50 12/04/18 11:50 General appearance: Present: no acute distress, well-nourished - EENT Eyes: Present: PERRL ENT: hearing intact, clear oral mucosa - Neck Neck: Present: supple, normal ROM - Respiratory Respiratory effort: normal Respiratory: bilateral: CTA - Cardiovascular Heart rate: 78 Rhythm: regular Heart Sounds: Present: S1 & S2. Absent: rub, click - Extremities Extremities: no ischemia, pulses intact, pulses symmetrical, No edema Peripheral Pulses: within normal limits - Abdominal General gastrointestinal: Present: soft, non-tender, non-distended, normal bowel sounds Male genitourinary: Present: normal - Integumentary Integumentary: Present: clear, warm, dry - Musculoskeletal Musculoskeletal: gait normal, strength equal bilaterally - Psychiatric Psychiatric: appropriate mood/affect, intact judgment & insight - Neurologic Neurologic: CNII-XII intact, moves all extremities - Allied Health Allied health notes reviewed: nursing, case management Plan Activity: no restrictions Diet: regular Follow up with: PRIMARY CAREMD [Referring] - 3-5 Days LUYC FREEMAN MD [Staff Physician] - 7 Days
[2018-12-04 13:14] LABS: Hematocrit 42.9 % (35.5-45.6); Hemoglobin 14.7 gm/dl (11.8-15.2); Mean Corpuscular HGB Conc 34 % (32-34); Mean Corpuscular Volume 88 fl (84-94); Red Blood Count 4.87 M/mm3 (3.65-5.03); Red Cell Distribution Width 13.6 % (13.2-15.2)
[2018-12-04 13:16] LABS: Platelet Count 79 K/mm3 (140-440)
[2018-12-04 14:09] LABS: Basophils % (Manual) 0 % (0.0-1.8); Total Cells Counted 100
[2018-12-04 14:10] LABS: Large Platelets Rare; Platelet Estimate Consistent w Auto; RBC Morphology Normal
== END 2018-12-04 15:04 | disposition home or self-care (01) | DRG 872 ==
LOC: ED 08:56 → 3A 15:54
PROVIDERS: ADMIT Internal Medicine; ATTEND Internal Medicine
DX: A41.9 Sepsis, unspecified organism (principal); E87.1 Hypo-osmolality and hyponatremia; K62.89 Other specified diseases of anus and rectum; D69.6 Thrombocytopenia, unspecified; E87.6 Hypokalemia; R65.20 Severe sepsis without septic shock; F17.200 Nicotine dependence, unspecified, uncomplicated; J20.9 Acute bronchitis, unspecified; Z72.89 Other problems related to lifestyle
CPT/HCPCS: 36415; 71045; 71275; 74177; 80053; 80074; 81001; 82024; 82140; 82805; 83036; 84439; 84443; 84484; 85007; 85025; 85610; 86140; 86403; 86592; 86593; 86780; 87040; 87086; 87400; 87536; 87591; 87806; 87901; 93005; 93010; 93017; 96365; 99285; 99406; G0378; J0133; J0696; J1170; J1200; J1650; J1956; J2405; J2785; J7030; J7042; J7050; J7060; Q9967